=== PATIENT | female | born 2005 | race Caucasian/White ===

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

== ENCOUNTER 2025-04-18 13:10 | Emergency (ER) | payer BC ==
[~2025-04-18] VITALS: Ht 170.1 cm; Wt 65.8 kg
[2025-04-18] MEDS ORDERED: YASMIN 28 TABL1 EACH PO (13:24)
[2025-04-18] MEDS ORDERED: ZOLOFT50 MG PO (13:25)
[2025-04-18 15:11] LABS: BILIRUBIN Negative (Negative); BLOOD Negative (Negative); CLARITY Clear (Clear); COLOR Yellow (Yellow); KETONE Negative (Negative); LEUKO ESTERASE Trace (Negative); NITRITE Negative (Negative); PH 6.5 (4.5-8.0); SPECIFIC GRAVITY <= 1.005 (1.001-1.030); UROBILINOGEN 0.2 E.U./dl (0.0-1.0)
[2025-04-18 15:19] LABS: BACTERIA 1+; RBC 0-2 rbc/hpf (0-2)
[2025-04-18] MEDS ORDERED: SODIUM CHLORIDE 0.9% 1,000 ML IV ONE (15:20)
[2025-04-18] MEDS ORDERED: OMEPRAZOLE 20 MG CAP PO ONE (15:20)
[2025-04-18] MEDS ORDERED: IOHEXOL 300 MG/ML 100 ML VIAL IV ONE (15:25)
[2025-04-18 15:30] LABS: BASO # 0.0 10*3/uL (0.0-0.1); BASO % 0.9 % (0.0-1.0); EOS # 0.1 10*3/uL (0.0-0.4); EOS % 2.7 % (1.0-4.0); MEAN CELL VOLUME 90.1 fl (81.0-99.0); MEAN CORPUSCULAR HGB 29.4 pg (27.0-31.0); MEAN PLATELET VOLUME 9.7 fl (9.6-12.3); MONO # 0.5 10*3/uL (0.1-1.0); MONO % 10.2 % (3.0-9.0); NEUT # 2.6 10*3/uL (2.3-7.9); NEUT % 58.4 % (47.0-73.0); NUCLEATED RED BLOOD CELL 0.0 % (0.0-0.0); NUCLEATED RED BLOOD CELL 0.0 10*3/uL (0.0-0.0); PLATELET COUNT AUTOMATED 192 10*3/uL (130-400); RED CELL DISTRI WIDTH 12.6 % (0-14.5)
[2025-04-18 15:54] LABS: BUN 8 mg/dl (9-23); SGPT/ALT 33 U/L (5-49)
[2025-04-18] MEDS ORDERED: MACROBID100 M1 PO (18:42)
[2025-04-18] MEDS ORDERED: MIRALAX POWDER17 G1 PO (18:42)
[2025-04-18] MEDS ORDERED: Nitrofurantoin Monohydrate/N 100 MG CAP PO ONE (18:45)
[2025-04-18] MEDS ORDERED: Polyethylene Glycol 3350 17 GM PACKET PO ONE (18:45)
== END 2025-04-18 19:40 | disposition home or self-care (01) ==
LOC: ED 13:10
DX: K59.00 Constipation, unspecified (principal); N39.0 Urinary tract infection, site not specified; R10.2 Pelvic and perineal pain; R11.0 Nausea; R19.7 Diarrhea, unspecified; Z88.5 Allergy status to narcotic agent; Z88.8 Allergy status to other drugs, medicaments and biological substances; Z79.899 Other long term (current) drug therapy; Z90.89 Acquired absence of other organs